=== PATIENT | male | born 1950 | race Caucasian/White ===

== ENCOUNTER 2019-05-05 13:05 | Emergency (ER) | payer MEDICARE, BC ==
[~2019-05-05] VITALS: Ht 182.9 cm; Wt 93.6 kg
[~2019-05-05 13:05] MED LIST: ASPIRIN 81 MG E81 MG PO; FAMVIR500 MG PO; NITRO-DUR0.4 MG TD; NORCO 5/325 TAB1 TA1 PO; PROTONIX20 MG PO; PROTONIX40 MG PO; SYNTHROID125 MCG PO; TOPROL XL25 MG PO; ZOVIRAX400 MG PO
[2019-05-05 13:36] VITALS: Ht 182.9 cm; Wt 93.6 kg
[2019-05-05 14:14] LABS: BASOPHILS 0.4 % (0-2); EOSINOPHILS 1.7 % (0-7); HEMATOCRIT 45.9 % (42.0-54.0); IMMATURE GRANULOCYTES 0.3 % (0-5); MCH 27.2 pg (26.0-34.0); MCHC 34.9 g/dL (31.0-37.0); MCV 78.1 fL (80.0-100.0); MEAN PLATELET VOLUME 10.3 fL (7.4-10.4); MONOCYTES 5.6 % (2-11); RBC 5.88 10x6/uL (4.20-6.10); RDW 14.4 % (11.5-14.5); WBC 7.4 10x3/uL (4.8-10.8)
[2019-05-05 14:16] LABS: ALBUMIN 4.1 g/dL (3.4-5.0); ALKALINE PHOSPHATASE 59 U/L (46-116); ALT (SGPT) 44 U/L (10-68); BILIRUBIN - TOTAL 0.49 mg/dL (0.2-1.3); CALC OSMOLALITY 280 mosm/kg (275-300); CARBON DIOXIDE 30.8 mmol/L (21.0-32.0); CHLORIDE - SERUM 101 mmol/L (98-107); CREATININE - SERUM 1.3 mg/dL (0.6-1.3); GLUCOSE 103 mg/dL (74-106); POTASSIUM - SERUM 4.2 mmol/L (3.5-5.1); PROTEIN - SERUM 7.5 g/dL (6.4-8.2); SODIUM 140 mmol/L (136-145); UREA NITROGEN 19 mg/dL (7-18); eGFR NON AFRICAN AMERICAN 58 mL/min (90-120)
[2019-05-05 14:20] LABS: AMYLASE - SERUM 83 U/L (25-115); LIPASE 228 U/L (73-393); TROPONIN-I < 0.017 ng/mL (0.000-0.060)
[2019-05-05 14:37] LABS: PLATELET COUNT 151 10x3/uL (130-400)
[2019-05-05 15:24] LABS: APPEARANCE CLEAR (CLEAR); BILIRUBIN NEGATIVE (NEGATIVE); COLOR STRAW (YELLOW); GLUCOSE NEGATIVE (NEGATIVE); KETONE NEGATIVE (NEGATIVE); NITRITE NEGATIVE (NEGATIVE); PROTEIN NEGATIVE (NEGATIVE); UROBILINOGEN NORMAL (NORMAL)
[2019-05-05] MEDS ORDERED: OMEPRAZOLE20 M1 PO (15:59)
[2019-05-05 16:02] VITALS: BP 108/78
== END 2019-05-05 16:15 | disposition home or self-care (01) ==
LOC: D.ER 13:05
PROVIDERS: Family Medicine
DX: K21.9 Gastro-esophageal reflux disease without esophagitis (principal)

== ENCOUNTER → 2019-08-15 10:36 | Outpatient (CLI) | payer MEDICARE, BC ==
[2019-05-05 13:36] VITALS: BMI 28.0
[~2019-08-15 10:36] MED LIST changes: +OMEPRAZOLE20 M1 PO
== END | disposition home or self-care (01) ==
LOC: D.HCCECHO 10:36 → D.HCCARDIO 11:00 → D.HCCECHO 11:00
PROVIDERS: ATTEND Internal Medicine Cardiovascular Disease
DX: I35.1 Nonrheumatic aortic (valve) insufficiency (principal)